=== PATIENT | male | born 1940 | race Caucasian/White ===

== ENCOUNTER → 2024-12-20 08:56 | Outpatient (REF) | payer OTHER, SELFPAY ==
[2024-12-20 09:10] VITALS: BP 133/66; BP_SYST 85
[2024-12-20 09:40] VITALS: BP 131/67; BP_SYST 81
[2024-12-20 10:08] VITALS: BP 131/67
[2024-12-20 10:53] LABS: Body Fluid Mononuclear 90.4 %; Body Fluid Polymorphonuclear 9.6 %; Body Fluid WBC 762 /CUMM
[2024-12-20 11:02] LABS: Body Fluid Second Tech EM
== END ==
LOC: RADI 08:56
PROVIDERS: ATTENDING PHYSICIAN Family Medicine
DX: R18.8 Other ascites (principal)
CPT/HCPCS: 49083; 89051

== ENCOUNTER → 2025-01-06 09:07 | Outpatient (REF) | payer OTHER, SELFPAY ==
[2025-01-06 09:32] VITALS: BP 124/63; BP_SYST 79
== END ==
LOC: RADI 09:07
PROVIDERS: ATTENDING PHYSICIAN Family Medicine; FAMILY PHYSICIAN Internal Medicine
DX: R18.8 Other ascites (principal); Z53.8 Procedure and treatment not carried out for other reasons
CPT/HCPCS: 76705